=== PATIENT | female | born 1975 | race Caucasian/White ===

== ENCOUNTER → 2022-07-29 23:27 | Outpatient (CLI) | payer BC, SELFPAY ==
[2022-07-29 19:01] LABS: Alanine Aminotransferase 22 U/L (12-78); Albumin Level 4.2 g/dl (3.5-5.0); Albumin/Globulin Ratio 1.6 (1.1-1.8); Alkaline Phosphatase 143 U/L (38-126); Anion Gap 15.5 mEq/L (5-15); Aspartate Amino Transferase 25 U/L (14-36); Bilirubin,Total 0.7 mg/dl (0.2-1.3); Blood Urea Nitrogen 15 mg/dl (7-17); Calcium 9.2 mg/dl (8.4-10.2); Carbon Dioxide 20 mmol/L (22.0-30.0); Chloride 105 mmol/L (98-107); Cholesterol 252 mg/dl (140-200); Estimated Glomerular Filt Rate 108 ml/min (>60); GFR (African American) 130 ML/MIN (>60); Globulin 2.6 g/dL (1.3-3.2); Glucose 196 mg/dl (74-100); HDL Cholesterol 50 mg/dl (40-60); Potassium 4.5 mmoL/L (3.5-5.1); Sodium 136 mmol/L (136-145); Total Protein,Serum 6.8 g/dl (6.3-8.2)
[2022-07-29 19:13] LABS: Direct LDL Cholesterol 131.07 mg/dL (100-129)
[2022-07-29 19:38] LABS: Triglycerides 621 mg/dl (30-150)
== END ==
PROVIDERS: PCP Family Medicine; Visit Provider Family Medicine
DX: E66.9 Obesity, unspecified (principal); Z68.41 Body mass index [BMI] 40.0-44.9, adult; Z79.899 Other long term (current) drug therapy
CPT/HCPCS: 80053; 80061; 84443

== ENCOUNTER → 2023-02-05 22:44 | Outpatient (CLI) | payer BC, SELFPAY ==
[2023-02-05 20:39] LABS: Basophils # 0.1 K/mm3 (0-0.2); Basophils % 0.9 % (0.1-2.0); Eosinophils # 0.3 K/mm3 (0.0-0.4); Eosinophils % 3.9 % (0.1-12.0); Hematocrit 44.4 % (37.0-47.0); Hemoglobin 15.3 g/dL (12.2-16.2); Lymphocytes # 2.6 K/mm3 (0.7-4.5); Lymphocytes % 35.6 % (10-50); Mean Corpuscular HGB Conc 34.4 g/dL (31.8-35.4); Mean Corpuscular Hemoglobin 30.8 pg (27.0-31.2); Mean Corpuscular Volume 89.5 fl (81-99); Mean Platelet Volume 11.7 fl (7.4-10.4); Monocytes # 0.4 K/mm3 (0.1-1.0); Monocytes % 5.3 % (1.7-9.3); Neutrophils % 54.4 % (37.0-80.0); Platelet Count 304 K/mm3 (142-424); Red Blood Count 4.96 M/mm3 (4.20-5.40); Red Cell Distribution Width 12.7 % (11.5-17.5); White Blood Count 7.4 K/mm3 (4.8-10.8)
[2023-02-05 20:44] LABS: Alanine Aminotransferase 39 U/L (12-78); Albumin Level 4.4 g/dl (3.5-5.0); Albumin/Globulin Ratio 1.6 (1.1-1.8); Alkaline Phosphatase 157 U/L (38-126); Anion Gap 16.2 mEq/L (5-15); Aspartate Amino Transferase 42 U/L (14-36); Bilirubin,Total 1.2 mg/dl (0.2-1.3); Blood Urea Nitrogen 17 mg/dl (7-17); Calcium 9.1 mg/dl (8.4-10.2); Carbon Dioxide 22 mmol/L (22.0-30.0); Chloride 104 mmol/L (98-107); Chol/HDL Ratio 4.9 (1-3.5); Cholesterol 246 mg/dl (140-200); Estimated Glomerular Filt Rate 107 ml/min (>60); GFR (African American) 130 ML/MIN (>60); Globulin 2.7 g/dL (1.3-3.2); Glucose 300 mg/dl (74-100); HDL Cholesterol 50 mg/dl (40-60); Potassium 4.2 mmoL/L (3.5-5.1); Sodium 138 mmol/L (136-145); Total Protein,Serum 7.1 g/dl (6.3-8.2); Triglycerides 489 mg/dl (30-150)
[2023-02-05 20:55] LABS: Direct LDL Cholesterol 132.44 mg/dL (100-129)
[2023-02-05 21:15] LABS: Thyroid Stimulating Hormone 1.05 uIU/mL (0.465-4.68)
== END ==
PROVIDERS: PCP Family Medicine; Visit Provider Family Medicine
DX: M79.7 Fibromyalgia (principal); Z79.899 Other long term (current) drug therapy
CPT/HCPCS: 80053; 80061; 83036; 84443; 85025

== ENCOUNTER 2023-08-06 12:52 | Outpatient (CLI) | payer OTHER, SELFPAY ==
[2023-08-06 18:52] LABS: Hemoglobin A1C 7.2 % (4.0-6.0)
[2023-08-06 18:57] LABS: Alanine Aminotransferase 26 U/L (12-78); Albumin Level 4.1 g/dl (3.5-5.0); Albumin/Globulin Ratio 1.6 (1.1-1.8); Alkaline Phosphatase 122 U/L (38-126); Anion Gap 12.3 mEq/L (5-15); Aspartate Amino Transferase 28 U/L (14-36); Bilirubin,Total 1.6 mg/dl (0.2-1.3); Blood Urea Nitrogen 18 mg/dl (7-17); Calcium 9.3 mg/dl (8.4-10.2); Carbon Dioxide 26 mmol/L (22.0-30.0); Chloride 106 mmol/L (98-107); Estimated Glomerular Filt Rate 90 ml/min (>60); GFR (African American) 109 ML/MIN (>60); Globulin 2.5 g/dL (1.3-3.2); Glucose 161 mg/dl (74-100); Potassium 4.3 mmoL/L (3.5-5.1); Sodium 140 mmol/L (136-145); Total Protein,Serum 6.6 g/dl (6.3-8.2)
== END 2023-08-06 23:59 | disposition home or self-care (01) ==
LOC: LAB.DROPOF 08-07 12:52
PROVIDERS: PCP Family Medicine; Visit Provider Family Medicine
DX: E11.9 Type 2 diabetes mellitus without complications (principal); Z79.899 Other long term (current) drug therapy; E66.9 Obesity, unspecified; Z68.41 Body mass index [BMI] 40.0-44.9, adult
CPT/HCPCS: 80053; 83036

== ENCOUNTER 2023-11-26 16:11 | Outpatient (CLI) | payer OTHER, SELFPAY ==
[2023-11-26 19:18] LABS: Creatinine,Urine Random 295 mg/dL (Not Estab.); Microalbumin/Creatinine Ratio 3.6
== END 2023-11-26 23:59 | disposition home or self-care (01) ==
LOC: LAB.DROPOF 11-28 19:27
PROVIDERS: PCP Family Medicine; Visit Provider Family Medicine
DX: E11.9 Type 2 diabetes mellitus without complications (principal); Z79.84 Long term (current) use of oral hypoglycemic drugs; Z79.85 Long-term (current) use of injectable non-insulin antidiabetic drugs
CPT/HCPCS: 82043; 82570